=== PATIENT | male | born 1960 | race Caucasian/White ===

== ENCOUNTER 2016-12-02 08:20 | Day surgery (SDC) | payer BC ==
[2016-12-01 13:30] VITALS: BMI 31.2
--- NOTE | 2016-12-02 11:57 | HP ---
History & Physical Update - History History: No Change - Physical Physical: No Change - Assessment Assessment: No Change - Plan Plan: No Change
[2016-12-02] MEDS ORDERED: MIDAZOLAM HCL 2 MG/2 ML SINGLE DOSE VIAL ONE (13:03)
[2016-12-02] MEDS ORDERED: ATROPINE SO4 0.4 MG/1 ML VIAL ONE (13:23)
[2016-12-02] MEDS ORDERED: ceFAZolin SODIUM 1 GM VIAL ONE (13:23)
[2016-12-02] MEDS ORDERED: ROCURONIUM BROMIDE 50 MG/5 ML VIAL ONE ×2 (13:23)
[2016-12-02] MEDS ORDERED: ceFAZolin SODIUM 1 GM VIAL IVPB ONE (13:40)
[2016-12-02] MEDS ORDERED: BUPIVACAINE HCL/PF 0.5% (5MG/ML) 10 ML VIAL ONE (13:45)
[2016-12-02] MEDS ORDERED: BUPIVACAINE HCL/PF 0.5% (5MG/ML) 10 ML VIAL IJ ONE (13:48)
[2016-12-02] MEDS ORDERED: NEOSTIGMINE METHYLSULFATE 0.5 MG/ML - 10 ML MDV ONE (15:03)
[2016-12-02] MEDS ORDERED: GLYCOPYRROLATE 0.2 MG/1 ML VIAL ONE (15:03)
--- NOTE | 2016-12-02 15:23 | SURG ---
Surgery Wad Impregnator Note Wad Impregnator: Oracio Foreman PA-C Date of Service: 12/02/16 Diagnosis: Incarcerated umbilical hernia Procedure: Robotic repair incarcerated umbilical hernia with mesh I was present for the entirety of the operative procedure. For further detail, please refer to operative report. Visit type - Case Type Case Type: Scheduled Admission - New patient This patient is new to me today: Yes Date on this admission: 12/02/16
[2016-12-02] MEDS ORDERED: PROMETHAZINE HCL 25 MG/1 ML VIAL IVPUSH PRN (15:31)
[2016-12-02] MEDS ORDERED: ONDANSETRON 4 MG/2 ML VIAL IVPUSH PRN (15:31)
[2016-12-02] MEDS ORDERED: LABETALOL HCL 5 MG/1 ML (100MG/20 ML VIAL) IVPUSH ONE (15:34)
[2016-12-02] MEDS ORDERED: LACTATED RINGERS SOLUTION 1,000 ML IV SCH (15:45)
--- NOTE | 2016-12-02 15:58 | OP ---
Operative Note - Note: Operative Date: 12/02/16 Pre-Operative Diagnosis: UMBILICAL HERNIA Operation: ROBOTIC UMBILICAL HERNIA REPAIR WITH MESH Findings: 4 CM UMBILICAL HERNIA CONTAINING OMENTUM Post-Operative Diagnosis: Same as Pre-op Surgeon: Woody Weldon Steam Pressure Chamber Operator: Oracio Foreman Anesthesia: General Operative Report Dictated: Yes
[2016-12-02] MEDS ORDERED: hydrALAZINE HCL 20 MG/ML VIAL ONE (15:59)
[2016-12-02] MEDS ORDERED: HYDROmorphone HCL CARPU-JECT 2 MG/1 ML DISP.SYRIN ONE (16:12)
[2016-12-02] MEDS ORDERED: hydrALAZINE HCL 20 MG/ML VIAL IVPUSH ONE (16:34)
[2016-12-02 17:33] VITALS: TEMP 98.9
[2016-12-02 19:50] VITALS: BP 151/86; PULSE 63
--- NOTE | 2016-12-03 13:40 | OP ---
DATE OF OPERATION: 12/02/2016 PROCEDURE: Robotic-assisted laparoscopic umbilical hernia repair with mesh. PREOPERATIVE DIAGNOSIS: Umbilical hernia. POSTOPERATIVE DIAGNOSIS: Umbilical hernia. SURGEON: Woody Weldon MD DEALER SALES MANAGER: DESTINY Morel ANESTHESIA: General endotracheal. FINDINGS AND PROCEDURE: This is a 56-year-old male with the of slowly growing bulge over the umbilicus which was partially reducible, with a defect of about 3 cm in its widest diameter. The patient was advised repair of the hernia, and consent was obtained after discussing the risks, benefits, and alternatives of the procedure. Patient was brought to the operating room and placed in supine position. General endotracheal anesthesia was administered. The abdomen was prepped and draped in the usual sterile fashion. A roll was placed under the patient's left flank. Using 0.5% Marcaine, local anesthesia was administered to the proposed incision site. The peritoneal cavity was entered using the Veress needle technique via an 8-mm incision at the left subcostal region posterior to the anterior axillary line. Pneumoperitoneum was established. This was followed by insertion of an 8-mm port. The 3-D 30-degree laparoscope was inserted, and the peritoneal cavity was carefully inspected. No inadvertent injury was noted. The hernia contained a small piece of omentum which was readily reduced. Two 8-mm ports were inserted between the anterior axillary and the midclavicular lines about 8-9 mm away from each other, one at the level of the umbilicus and one at the left lower quadrant. The target organ was set and the robotic arms were docked. A fenestrated bipolar grasper was inserted in the left lower quadrant port, and the EndoWrist german connected to monopolar cautery were inserted at the left subcostal port. The undersigned then scrubbed out to commence the console part of the procedure. The peritoneum covering about 5 cm away from the umbilicus was scored and opened to enter the preperitoneal space. This was extended up and down about 12 cm. This dissection was carried down towards the umbilical hernia and then beyond the midline to the right to about also 5 cm from the umbilical hernia. The hernia sac was carefully dissected using the EndoWrist german and was completely reduced. The full size now of the umbilical hernia was about 4 cm in diameter. After dissection was deemed satisfactory, the umbilical defect was closed with continuous V-Loc No. 1 nonabsorbable sutures. This was followed by deployment of a 9 x 12-cm ProGrip mesh to reinforce the repair. After deployment was deemed satisfactory, the peritoneal pocket was then closed with continuous V-Loc 2-0 absorbable sutures. The peritoneal cavity was once again carefully inspected and was found to be free of active bleeding or any abnormal fluid collection or fluid drainage. The pneumoperitoneum was evacuated and the instruments were removed. The robotic arms were undocked and the ports were removed. The wounds were closed with subcuticular Biosyn 4-0 sutures reinforced with Dermabond. The patient was successfully extubated and transferred to the postanesthesia care unit in satisfactory condition. Estimated blood loss was about 5 mL. WOUND CLASS: Clean. The patient received 2 g of Ancef prior to the start of the procedure. Agapito [id number]
== END 2016-12-02 19:00 | disposition home or self-care (01) ==
LOC: JASU-SURG 08:20
PROVIDERS: ATTEND Surgery
PROC: 8E0W4CZ Robotic Assisted Procedure of Trunk Region, Percutaneous Endoscopic Approach (ICD-10-PCS; 2016-12-02)
PROC: 0WUF4JZ Supplement Abdominal Wall with Synthetic Substitute, Percutaneous Endoscopic Approach (ICD-10-PCS; principal; 2016-12-02 11:00)
DX: K42.9 Umbilical hernia without obstruction or gangrene (principal)
CPT/HCPCS: 49652; S2900; 94760

== ENCOUNTER 2017-12-07 07:38 | Day surgery (SDC) | payer BC, OTHER ==
[2017-10-23 10:08] VITALS: BMI 31.0
[2017-12-07] MEDS ORDERED: LIDOCAINE HCL 1%, 10 MG/ML (20ML VIAL) ONE (09:59)
[2017-12-07] MEDS ORDERED: BUPIVACAINE HCL/PF 0.5% (5MG/ML) 10 ML VIAL ONE (09:59)
[2017-12-07] MEDS ORDERED: PROPOFOL 20 ML ONE ×2 (10:04→10:50)
[2017-12-07] MEDS ORDERED: MIDAZOLAM HCL 2 MG/2 ML SINGLE DOSE VIAL ONE (10:04)
[2017-12-07] MEDS ORDERED: PROMETHAZINE HCL 25 MG/1 ML VIAL IVPUSH PRN ×2 (10:23→11:54)
[2017-12-07] MEDS ORDERED: ONDANSETRON 4 MG/2 ML VIAL IVPUSH PRN ×2 (10:23→11:54)
[2017-12-07] MEDS ORDERED: ceFAZolin SODIUM 1 GM VIAL ONE (10:30)
[2017-12-07] MEDS ORDERED: LACTATED RINGERS SOLUTION 1,000 ML IV SCH ×2 (10:30→12:00)
[2017-12-07] MEDS ORDERED: SODIUM CHLORIDE 0.9% P/F 10 ML VIAL IJ ONE (10:30)
[2017-12-07] MEDS ORDERED: ceFAZolin SODIUM 1 GM VIAL IVPB ONE (10:33)
[2017-12-07] MEDS ORDERED: LIDOCAINE HCL/PF 2% SDV 5ML VIAL ONE (10:33)
[2017-12-07] MEDS ORDERED: LIDOCAINE HCL 1%, 10 MG/ML (20ML VIAL) NR ONE ×2 (10:45)
[2017-12-07] MEDS ORDERED: BUPIVACAINE HCL/PF (5 MG/ML) 30 ML VIAL IJ ONE ×3 (10:45)
[2017-12-07] MEDS ORDERED: KETOROLAC TROMETHAMINE 30 MG/1 ML VIAL ONE (10:54)
--- NOTE | 2017-12-07 11:44 | SURG ---
Surgery Dynamic Balancer Note Dynamic Balancer: Kalin Fields PA-C Date of Service: 12/07/17 Diagnosis: Sebaceous cyst and Lipoma Procedure: Excision of upper back sebaceous cyst and Right chest wall lipoma I was present for the entirety of the operative procedure. For further detail, please refer to operative report.
--- NOTE | 2017-12-07 11:44 | OP ---
Operative Note - Note: Operative Date: 12/07/17 Pre-Operative Diagnosis: Sebaceous cyst and lipoma Operation: Excision of upper back sebaceous cyst and Right chest well lipoma Surgeon: Westley Mandujano Senior Staff Consultant: Kalin Fields Anesthesia: MAC Estimated Blood Loss (mls): 5 Fluid Volume Replaced (mls): 600 Operative Report Dictated: Yes
[2017-12-07 12:41] VITALS: TEMP 97.8
[2017-12-07 13:47] VITALS: BP 130/85; PULSE 50
--- NOTE | 2017-12-09 09:55 | PATH ---
Surgical Pathology Report Patient Name: RAJINDER CURRIE [facility]. Rec. #: [id number] /Age/Gender: 1960 (Age: 57) / M Account: [id number] Location: [facility] SURGICAL Taken: 12/07/2017 Received: 12/07/2017 Reported: 12/09/2017 Physicians: Westley Mandujano MD Specimen(s) Received A: LIPOMA, RIGHT LATERAL CHEST WALL B: SEBACEOUS CYST, RIGHT UPPER BACK Clinical History Sebaceous cyst, right upper back Lipoma right lateral chest wall Final Diagnosis A. CHEST WALL, LATERAL, RIGHT, EXCISION: MATURE FIBROADIPOSE TISSUE CONSISTENT WITH LIPOMA. B. UPPER BACK, RIGHT, EXCISION: EPIDERMAL INCLUSION CYST. Electronically Signed Kanwal Ovalles M.D. Gross Description A. Received in formalin labeled as "lipoma, right lateral chest wall" is a yellow lobulated adipose tissue measuring 4 x 3 x 2 cm. Cut section is yellow and homogenous. No necrosis or hemorrhage are identified. Video Engineer sections are submitted in one cassette B. Received in formalin labeled as "sebaceous cyst, right upper back" is an ellipse of brown-rutherford skin measuring 2 x 0.5 cm with an underlying cystic lesion measuring 2.5 x 2 cm. Surgical margin is inked in blue. Cut section of the cyst contains rutherford homogenous material. The specimen is entirely submitted in 4 cassettes. FROYLAN/12/07/2017 mehnaz/12/07/2017
--- NOTE | 2017-12-09 10:01 | OP ---
DATE OF OPERATION: 12/07/2017 PREOPERATIVE DIAGNOSIS: Soft tissue mass of the right lateral chest wall ( lipoma) and sebaceous cyst of the upper back. PROCEDURE: Excision of soft tissue masses. SURGEON: Westley Mandujano MD OFFAL ICER POULTRY: Kalin Fields PA-C ANESTHESIA: Local with IV sedation. OPERATIVE FINDINGS: There was an approximately 5-cm subfascial right lateral chest wall mass clinically consistent with a lipoma as well as an approximately 3-cm sebaceous cyst of the upper back. The rest of the findings were unremarkable. DESCRIPTION OF PROCEDURE: The patient was placed on the operating table in the left lateral decubitus position, and the areas over the masses that had been previously marked were prepped with ChloraPrep and draped in sterile fashion. A time-out was taken. An incision was mapped out over the right lateral chest wall mass, and the area was infiltrated with 1% Xylocaine and 0.5% Marcaine in equal concentration. An incision was made with a scalpel and taken down through skin and subcutaneous tissues to the deep fascia where the mass was encountered. Using blunt dissection and electrocautery, the mass was dissected off the chest wall fascia and down to its insertion in the intercostal muscle. The pedicle was clamped. The mass excised and sent for pathological examination, and the pedicle ligated with 3-0 Vicryl suture. Hemostasis was checked for and noted to good, and then the wound was copiously irrigated with sterile saline and closed in layers with interrupted 2-0 Vicryl for the deep fascia, interrupted 3-0 Vicryl for the deep dermis, and 4-0 Monocryl in a subcuticular continuous fashion. Attention was then turned to the mass on the upper back, where an incision was mapped out to include the punctum and a paddle of skin overlying the mass. Again, the area was infiltrated with 1% Xylocaine and 0.5% Marcaine in equal concentration. An incision was made with a scalpel and taken down through skin and subcutaneous tissue. The mass was then dissected free from the underlying subcutaneous space and passed off the operative field intact and sent for pathological examination. Hemostasis was secured with electrocautery, and the wound closed in layers with interrupted 3-0 Vicryl for the deep dermis and 4-0 Monocryl in a subcuticular continuous fashion to reapproximate the skin edges. Steri-Strips, dry sterile dressings, and Tegaderm dressing were placed. Then, the procedure terminated at this point, and the patient was transferred to the post-anesthesia care unit in stable condition, awake and alert. ESTIMATED BLOOD LOSS: 5 mL. REPLACEMENTS: Crystalloid. DRAINS: None. SPECIMENS: Lipoma and sebaceous cyst to Pathology. I, Westley Mandujano MD, was physically present in the operating room from the time the patient was placed on the operating table until he was transferred to the post-anesthesia care unit in my accompaniment. MD LUCERO Mandujano/[id number] MTDD
== END 2017-12-07 13:50 | disposition home or self-care (01) ==
LOC: JASU-SURG 07:38
PROVIDERS: ATTEND Surgery
PROC: 0JB70ZZ Excision of Back Subcutaneous Tissue and Fascia, Open Approach (ICD-10-PCS; 2017-12-07)
PROC: 0JB80ZZ Excision of Abdomen Subcutaneous Tissue and Fascia, Open Approach (ICD-10-PCS; principal; 2017-12-07 10:00)
DX: D48.1 Neoplasm of uncertain behavior of connective and other soft tissue (principal); L72.3 Sebaceous cyst
CPT/HCPCS: 88304-TC; 94760

== ENCOUNTER 2018-08-30 15:34 | Emergency (ER) | payer BC, OTHER ==
--- NOTE | 2018-08-30 15:38 | PDOC ---
Rapid Medical Evaluation Time Seen by Provider: 08/30/18 15:35 Medical Evaluation: Allergies Allergy/AdvReac Type Severity Reaction Status Date / Time No Known Allergies Allergy Verified 12/07/17 08:24 08/30/18 15:37 I have performed a brief in-person evaluation of this patient. The patient presents with a chief complaint of: vomiting Pertinent physical exam findings: VSS, AF. Right flank pain. -CVAT, ABD SNTND. I have ordered the following: urine, labs The patient will proceed to the ED for further evaluation. Discharge Disposition - Diagnosis Vomiting - Referrals - Patient Instructions - Post Discharge Activity
[2018-08-30] MEDS ORDERED: ONDANSETRON 4 MG/2 ML VIAL IVPUSH ONE (15:39)
[2018-08-30 15:40] VITALS: BP 137/89; PULSE 84; TEMP 98.6; BMI 32.5
[2018-08-30] MEDS ORDERED: ONDANSETRON 4 MG/2 ML VIAL ONE (16:34)
[2018-08-30 16:40] LABS: BASO % 0.8 % (0-2.0); EOS % 0.5 % (0-4.5); HEMATOCRIT 42.5 % (35.4-49); HEMOGLOBIN 14.9 GM/dL (11.7-16.9); LYMPH % 25.7 % (8-40); MCH 30.7 pg (25.7-33.7); MCHC 35.1 g/dl (32.0-35.9); MEAN CELL VOLUME 87.5 fl (80-96); MEAN PLT VOLUME 8.6 fl (7.5-11.1); MONO % 6.1 % (3.8-10.2); NEUT % 66.9 % (42.8-82.8); PLATELET COUNT 216 K/MM3 (134-434); RBC 4.86 M/mm3 (4.00-5.60); RDW 13.8 % (11.9-15.9); WHITE BLOOD COUNT 6.6 K/mm3 (4.0-10.0)
[2018-08-30 16:47] LABS: URINE APPEARANCE CLEAR; URINE BILIRUBIN NEGATIVE (<2.0 mg/dL); URINE COLOR DKYELLOW; URINE GLUCOSE (UA) NEGATIVE (NEGATIVE); URINE KETONE NEGATIVE (NEGATIVE); URINE LEUK ESTERASE NEGATIVE (NEGATIVE); URINE NITRITE NEGATIVE (NEGATIVE); URINE PROTEIN 1+ (NEGATIVE); URINE UROBILINOGEN NEGATIVE mg/dL (0.2-1.0)
[2018-08-30 16:48] LABS: EPI CELLS RARE /HPF (FEW); URINE MUCUS MANY
--- NOTE | 2018-08-30 16:59 | PDOC ---
History of Present Illness - General Chief Complaint: Nausea/Vomiting Stated Complaint: HEADACHE/VOMITING Time Seen by Provider: 08/30/18 15:35 History Source: Patient Exam Limitations: No Limitations - History of Present Illness Initial Comments: 08/30/18 16:51 58 yr old man with nephrolithiasis, HTN presents with vomiting 6x last night after eating moldovan food, initial emesis consisted of moldovan food and then 4x times this morning of nonbloody nonbloody emesis, about 1 cup each time consisting of the zach tammie he was drinking, a/w headache and weakness. no one else ate the moldovan food. denies fevers, chest pain, abdominal pain, sob, chills, nausea, hematochezia, hemoptysis, dysuria, hematuria. had colonoscopy 2-3yrs [address]. Snyder. was having constipation few weeks ago, was taking miralox for relief, has appointment with Dr. snyder on thursday for f/u. Surghx: hernia repear, sebaceous cyst Pmhx: htn, nephrolithiasis sochx: works at [employer], current everyday smoker since age 30, 2-3cigs/day, rare etoh use, never illicit drug use famhx: brother with HTN, CAD, was on dialysis at age 58, mother from brain cancer as older adult 08/30/18 17:00 Past History - Past Medical History Allergies/Adverse Reactions: Allergies Allergy/AdvReac Type Severity Reaction Status Date / Time No Known Allergies Allergy Verified 08/30/18 15:35 Home Medications: Ambulatory Orders Amlodipine Besylate 10 mg PO DAILY 12/07/17 Finasteride 5 mg PO HS 12/07/17 COPD: No Disorders: Yes (bph) HTN: Yes - Surgical History Abdominal Surgery: Yes (HERNIA) - Suicide/Smoking/Psychosocial Hx Smoking History: Current every day smoker Have you smoked in the past 12 months: Yes Number of Cigarettes Smoked Daily: 3 Information on smoking cessation initiated: Yes 'Breaking Loose' booklet given: 12/01/16 Hx Alcohol Use: No Drug/Substance Use Hx: No Substance Use Type: None Hx Substance Use Treatment: No Review of Systems - Review of Systems Constitutional: Yes: Weakness (since this morning). No: Diaphoresis, Fever HEENTM: No: Throat Swelling, Difficulty Swallowing Respiratory: No: Shortness of Breath, Productive cough, Hemoptysis Cardiac (ROS): No: Chest Pain, Edema, Irregular Heart Rate, Lightheadedness, Palpitations, Syncope, Chest Tightness ABD/GI: Yes: Constipated, Vomiting. No: Diarrhea, Difficulty Swallowing, Nausea , Abdominal cramping : No: Burning, Dysuria, Hematuria Musculoskeletal: No: Back Pain, Muscle Pain, Muscle Weakness, Neck Pain Integumentary: No: Bruising, Erythema, Pruritus, Rash Neurological: Yes: Headache. No: Numbness, Tingling, Tremors, Unsteady Gait, Dizziness *Physical Exam - Vital Signs Last Vital Signs Temp Pulse Resp BP Pulse Ox 98.6 F 84 20 137/89 98 08/30/18 15:36 08/30/18 15:36 08/30/18 15:36 08/30/18 15:36 08/30/18 15:36 - Physical Exam General Appearance: Yes: Appropriately Dressed HEENT: positive: EOMI, CARTER, Normal Voice, Pharynx Normal. negative: Tonsillar Erythema, Thrush Neck: positive: Trachea midline, Normal Thyroid, Supple Respiratory/Chest: positive: Lungs Clear, Normal Breath Sounds. negative: Crackles, Rales, Wheezing Cardiovascular: positive: Regular Rhythm, Regular Rate. negative: Murmur Gastrointestinal/Abdominal: positive: Normal Bowel Sounds, Flat, Soft. negative : Protuberent, Distended, Guarding Musculoskeletal: positive: Normal Inspection. negative: CVA Tenderness, Vertebral Tenderness Extremity: negative: Calf Tenderness, Erythema Integumentary: positive: Dry, Warm. negative: Rash Neurologic: positive: Fully Oriented, Alert Moderate Sedation - Procedure Monitoring Vital Signs: Procedure Monitoring Vital Signs Temperature 98.6 F 08/30/18 15:36 Pulse Rate 84 08/30/18 15:36 Respiratory Rate 20 08/30/18 15:36 Blood Pressure 137/89 08/30/18 15:36 O2 Sat by Pulse Oximetry (%) 98 08/30/18 15:36 ED Treatment Course - LABORATORY CBC & Chemistry Diagram: 08/30/18 16:30 08/30/18 16:30 - ADDITIONAL ORDERS Additional order review: Laboratory Results 08/30/18 08/30/18 16:30 16:30 WBC 6.6 RBC 4.86 Hgb 14.9 Hct 42.5 MCV 87.5 MCH 30.7 MCHC 35.1 RDW 13.8 Plt Count 216 MPV 8.6 Absolute Neuts (auto) 4.4 Neutrophils % 66.9 Lymphocytes % 25.7 D Monocytes % 6.1 Eosinophils % 0.5 Basophils % 0.8 Nucleated RBC % 0 Urine Color Dkyellow Urine Appearance Clear Urine pH 5.0 Ur Specific [place] 1.028 Urine Protein 1+ H Urine Glucose (UA) Negative Urine Ketones Negative Urine Blood Negative Urine Nitrite Negative Urine Bilirubin Negative Urine Urobilinogen Negative Ur Leukocyte Esterase Negative 08/30/18 16:30 RBC 4.86 MCV 87.5 MCHC 35.1 RDW 13.8 MPV 8.6 Neutrophils % 66.9 Lymphocytes % 25.7 D Monocytes % 6.1 Eosinophils % 0.5 Basophils % 0.8 - Medications Given in the ED: ED Medications Discontinued Medications Generic Name Dose Route Start Last Admin Trade Name Freq PRN Reason Stop Dose Admin Ondansetron HCl 4 mg 08/30/18 15:39 08/30/18 16:33 Zofran Injection IVPUSH 08/30/18 15:40 4 mg ONCE ONE Administration Medical Decision Making - Medical Decision Making 08/30/18 17:02 58 yr old man with HTN and nephrolithaisis presents with vomiting and weakness. pt receiving IVF, s/p zofran will check labs and po challenge likely gastritis PE unrevealing for any acute abdominal pathology to indicate imaging. counseled smoking cessation 08/30/18 17:21 reviewed results with patient tolerated crackers and water well in the ED. pt feels better with no episodes of vomiting in the ED. recommend he eat potassium rich foods at home as potassium level was low on labs , likely due to his vomiting. pt in agreement to f.u with dr. snyder and dr. erazo, pt is stable for outpatient f/u. work note provided. *DC/Admit/Observation/Transfer Diagnosis at time of Disposition: Vomiting - Discharge Dispostion Disposition: HOME Condition at time of disposition: Improved Decision to Admit order: No - Referrals Referrals: Siddhartha Herman MD [Primary Care Provider] - - Patient Instructions Printed Discharge Instructions: DI for Vomiting -- Adult, How to Quit Smoking Additional Instructions: resums eating and drinking as you can tolerate. Please keep your appointment with Dr.Lantin next week and follow-up with Dr. Erazo for post-hospital evaluation. If you develop any new symptoms, worsening abdominal pain, chest pain, fevers, bloody vomiting or any symptoms please return to the hospital. Please stop smoking. - Post Discharge Activity Forms/Work/School Notes: Back to Work
--- NOTE | 2018-08-30 17:02 | PDOC ---
Attending Attestation - Resident Resident Name: Brian Gooden - ED Attending Attestation I have performed the following: I have examined & evaluated the patient, The case was reviewed & discussed with the resident, I agree w/resident's findings & plan, Exceptions are as noted - HPI HPI: 08/30/18 16:55 58 yo male had Slovenian dinner last night and later developed nausea and vomiting -he had not taken anything for his headache but states it is resolving 08/30/18 17:18 - Physicial Exam PE: 08/30/18 17:18 wnwd 58 yo male with c/o nausea and vomiting head ncat neck supple,no jvd lungs cta b/l cvs [id number] abd no rebound,no guarding,no focal tenderness skin warm and dry no cva tenderness neuro axox3,ambulatory,motor strength 5/5 b/l psych appropriate - Medical Decision Making 08/30/18 17:21 pt feels much better after IVF and zofran imp gastritis,food borne illness plan d/c home
[2018-08-30 17:09] LABS: ALK PHOS 86 U/L (45-117); ANION GAP 7 MMOL/L (8-16); BILIRUBIN,TOTAL 0.8 mg/dL (0.2-1); BLOOD UREA NITROGEN 14 mg/dL (7-18); CHLORIDE 106 mmol/L (98-107); CO2 27 mmol/L (21-32); GLUCOSE,RANDOM 111 mg/dL (74-106); LIPASE 184 U/L (73-393); POTASSIUM 3.4 mmol/L (3.5-5.1); SGOT/AST 27 U/L (15-37); SGPT/ALT 46 U/L (13-61); SODIUM 141 mmol/L (136-145); TOT PROT 8.1 g/dl (6.4-8.2)
== END 2018-08-30 17:30 | disposition home or self-care (01) ==
LOC: JER 15:34
PROC: 3E033GC Introduction of Other Therapeutic Substance into Peripheral Vein, Percutaneous Approach (ICD-10-PCS; principal; 2018-08-30)
DX: K29.60 Other gastritis without bleeding (principal); I10 Essential (primary) hypertension; Z87.442 Personal history of urinary calculi
CPT/HCPCS: 36415; 80053; 81003; 81015; 83690; 85025; 87086; 99283-25

== ENCOUNTER 2018-11-26 23:35 | Emergency (ER) | payer BC, OTHER | END 2018-11-27 04:47 | disposition home or self-care (01) | LOC: JER 23:35 ==

== ENCOUNTER 2019-06-29 06:52 | Emergency (ER) | payer BC, OTHER ==
[2019-06-29 07:23] VITALS: TEMP 98.5; BMI 31.0
--- NOTE | 2019-06-29 07:39 | PDOC ---
History of Present Illness - General Chief Complaint: Chronic pain Stated Complaint: PAIN RIGHT HIP Time Seen by Provider: 06/29/19 07:38 - History of Present Illness Initial Comments: 06/29/19 07:51 58 yr old man with nephrolithiasis, HTN and chronic hip pain who presents with 2 days of R sided hip pain that is exacerbated with walking and radiates to the anterior thigh. The patient worked as a house keeper and had a pinching sensation in the hip starting approx 10 years ago and he went to physical therapy with improvement of the pain. The pain reoccurred 2 years ago and he went to physical therapy again with resolutions. 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 He denies any numbness, tingling, changes in urination, trauma or any other symptoms. He has no other complaints ROS GENERAL/CONSTITUTIONAL: No fever or chills. No weakness. HEAD, EYES, EARS, NOSE AND THROAT: No sore throat. CARDIOVASCULAR: No chest pain or shortness of breath RESPIRATORY: No cough, wheezing, or hemoptysis. GASTROINTESTINAL: No nausea, vomiting, diarrhea or constipation. GENITOURINARY: No dysuria, frequency, or change in urination. MUSCULOSKELETAL: + joint or muscle swelling or pain. No neck or back pain. SKIN: No rash NEUROLOGIC: No headache, vertigo, loss of consciousness, or change in strength/ sensation. ENDOCRINE: No increased thirst. No abnormal weight change HEMATOLOGIC/LYMPHATIC: No anemia, easy bleeding, or history of blood clots. ALLERGIC/IMMUNOLOGIC: No hives or skin allergy. PE GENERAL: Awake, alert, and fully oriented, in no acute distress HEAD: No signs of trauma, normocephalic, atraumatic EYES: EOMI, sclera anicteric, conjunctiva clear ENT: oropharynx clear without exudates. Moist mucosa NECK: Normal ROM, supple LUNGS: No distress, speaks full sentences, clear to auscultation bilaterally HEART: Regular rate and rhythm, normal S1 and S2, no murmurs, rubs or gallops, peripheral pulses normal and equal bilaterally. ABDOMEN: Soft, nontender. No guarding, no rebound. No masses EXTREMITIES : Normal inspection, Normal range of motion, no edema. No clubbing or cyanosis. Negative straight leg NEUROLOGICAL: Cranial nerves II through XII grossly intact. Normal speech, no focal sensorimotor deficits SKIN: Warm, Dry, normal turgor, no rashes or lesions noted MDM DDX including but not limited to: chronic pain consider piriformis syndrome ED Course: dose tylenol, reassess d/c with PCP f/u and for PT referral Tiffanie Grant PGY2 Emergency Medicine Past History - Past Medical History Allergies/Adverse Reactions: Allergies Allergy/AdvReac Type Severity Reaction Status Date / Time No Known Allergies Allergy Verified 06/29/19 08:59 Home Medications: Ambulatory Orders Amlodipine Besylate 10 mg PO DAILY 12/07/17 Finasteride 5 mg PO HS 12/07/17 COPD: No Disorders: Yes (bph) HTN: Yes Other medical history: inguinal hernia - Surgical History Abdominal Surgery: Yes (HERNIA) - Immunization History Immunization Up to Date: No - Psycho Social/Smoking Cessation Hx Smoking History: Current every day smoker Have you smoked in the past 12 months: Yes Number of Cigarettes Smoked Daily: 3 Information on smoking cessation initiated: No 'Breaking Loose' booklet given: 12/01/16 Hx Alcohol Use: No Drug/Substance Use Hx: No Substance Use Type: None Hx Substance Use Treatment: No *Physical Exam - Vital Signs Last Vital Signs Temp Pulse Resp BP Pulse Ox 98.5 F 62 16 143/89 98 06/29/19 07:21 06/29/19 07:21 06/29/19 07:21 06/29/19 07:21 06/29/19 07:21 Discharge - Discharge Information Problems reviewed: Yes Clinical Impression/Diagnosis: Hip pain, Chronic pain Condition: Stable Disposition: HOME - Admission No - Follow up/Referral Referrals: Siddhartha Herman MD [Primary Care Provider] - - Patient Discharge Instructions Patient Printed Discharge Instructions: DI for Chronic Pain -- Adult Additional Instructions: You were seen in the ED for complaints of hip pain. In the ED you were evaluated and treated with pain control There does not appear to be an acute need for immediate hospitalization. You are advised to follow up with your Primary Care Physician within 1 week. You should get a referral from your Family Doctor to go back to physical therapy Do not take Aleve every 4 hours, instead take it every 12 hours. Take Tylenol and Motrin for pain control Return to the ED immediately if you experience worsening pain, numbness, tingling or any other concerning symptoms - Post Discharge Activity Work/Back to School Note: Back to Work
[2019-06-29] MEDS ORDERED: KETOROLAC TROMETHAMINE 30 MG/1 ML VIAL IM ONE (08:12)
[2019-06-29] MEDS ORDERED: ACETAMINOPHEN 325 MG TABLET (FP) PO ONE (08:24)
[2019-06-29] MEDS ORDERED: KETOROLAC TROMETHAMINE 30 MG/1 ML VIAL ONE (08:41)
[2019-06-29] MEDS ORDERED: ACETAMINOPHEN 325 MG TABLET (FP) ONE (08:41)
[2019-06-29 09:39] VITALS: BP 141/89; PULSE 60
--- NOTE | 2019-06-29 11:08 | PDOC ---
Documentation entered by Ashley Valentin SCRIBE, acting as scribe for Meaghan Calderón MD. Meaghan Calderón MD: This documentation has been prepared by the jamaalibHomero osorio Lincy, SCRIBE, under my direction and personally reviewed by me in its entirety. I confirm that the documentation accurately reflects all work, treatment, procedures, and medical decision making performed by me. Attending Attestation - Resident Resident Name: Tiffanie Grant - [facility] HPI: 06/29/19 09:06 The patient is a 59-year-old male with a past medical history significant for HTN and chronic R. hip pain who presents to the emergency department with R. hip pain. The patient presents with 2 days of R. hip pain that radiates down the right thigh. The patient reports the pain is aggravated with ambulation, reports relief at rest. The patient reports the pain is similar to prior episodes of R. hip pain. Denies leg weakness. Allergies: NKA PCP: Dr. Herman - Physicial Exam PE: 06/29/19 09:07 GENERAL: Awake, alert, and fully oriented, in no acute distress LUNGS: Breath sounds equal, clear to auscultation bilaterally. No wheezes, and no crackles HEART: Regular rate and rhythm, normal S1 and S2, no murmurs, rubs or gallops NEUROLOGICAL: Cranial nerves II through XII grossly intact. Normal speech, normal gait - Medical Decision Making 07/01/19 16:37 pt presents to the Ed complaining of acute exacerbation of his chronic leg and hip pain. Ambulatory in the ED. No trauma or other indications for imaging. Pain is consistent with sciatica or other nerve compression. Will discharge home with instructions to follow up with his PMD.
== END 2019-06-29 09:39 | disposition home or self-care (01) ==
LOC: JER 06:52
PROC: 3E0233Z Introduction of Anti-inflammatory into Muscle, Percutaneous Approach (ICD-10-PCS; principal; 2019-06-29)
DX: M25.551 Pain in right hip (principal); G89.29 Other chronic pain; F17.210 Nicotine dependence, cigarettes, uncomplicated
CPT/HCPCS: 99281-25

== ENCOUNTER 2019-12-24 06:38 | Emergency (ER) | payer BC, OTHER ==
[2019-12-24 06:55] VITALS: TEMP 98.8; BMI 30.5
[2019-12-24] MEDS ORDERED: ACETAMINOPHEN 325 MG TABLET (FP) PO ONE (07:37)
[2019-12-24] MEDS ORDERED: LIDOCAINE 5% TOPICAL PATCH TP ONE (07:39)
[2019-12-24] MEDS ORDERED: LIDOCAINE 5% TOPICAL PATCH ONE (07:46)
[2019-12-24] MEDS ORDERED: ACETAMINOPHEN 325 MG TABLET (FP) ONE (07:46)
[2019-12-24 08:23] LABS: BASO % 0.9 % (0-2.0); EOS % 2.2 % (0-4.5); LYMPH % 31.5 % (8-40); MCHC 34.1 g/dl (32.0-35.9); MEAN CELL VOLUME 88.1 fl (80-96); MEAN PLT VOLUME 8.9 fl (7.5-11.1); MONO % 7.2 % (3.8-10.2); NEUT % 58.2 % (42.8-82.8); PLATELET COUNT 221 K/MM3 (134-434); RBC 4.99 M/mm3 (4.00-5.60); RDW 13.8 % (11.9-15.9); WHITE BLOOD COUNT 5.1 K/mm3 (4.0-10.0)
[2019-12-24 08:44] LABS: ALBUMIN 3.8 g/dl (3.4-5.0); BILIRUBIN,TOTAL 0.8 mg/dL (0.2-1); CREATININE 0.9 mg/dL (0.55-1.3); POTASSIUM 3.7 mmol/L (3.5-5.1); TOT PROT 6.5 g/dl (6.4-8.2)
[2019-12-24 08:53] LABS: PH,URINE 5.5 (5.0-8.0); URINE APPEARANCE Clear; URINE BILIRUBIN Negative (NEGATIVE); URINE COLOR Yellow; URINE GLUCOSE (UA) Negative (NEGATIVE); URINE KETONE Negative (NEGATIVE); URINE LEUK ESTERASE Negative (NEGATIVE); URINE NITRITE Negative (NEGATIVE); URINE PROTEIN Trace (NEGATIVE); URINE UROBILINOGEN 0.2 mg/dL (0.2-1.0)
[2019-12-24 09:26] VITALS: BP 130/93; PULSE 52
[2019-12-24] MEDS ORDERED: LIDOCAINE PATCH REMOVAL MC SCH (22:00)
== END 2019-12-24 10:17 | disposition home or self-care (01) ==
LOC: JER 06:38
DX: S39.012A Strain of muscle, fascia and tendon of lower back, initial encounter (principal); Y99.9 Unspecified external cause status
CPT/HCPCS: 36415; 73523-TC-FY; 80053; 81003; 85025; 99284-25

== ENCOUNTER 2021-02-04 22:26 | Emergency (ER) | payer BC ==
[2021-02-04 22:32] VITALS: BP 150/93; PULSE 67; TEMP 97.8; BMI 31.0
[2021-02-04] MEDS ORDERED: LIDOCAINE 5% TOPICAL PATCH TP ONE (23:06)
[2021-02-04] MEDS ORDERED: KETOROLAC TROMETHAMINE 30 MG/1 ML VIAL IM ONE (23:06)
[2021-02-04] MEDS ORDERED: LIDOCAINE 5% TOPICAL PATCH ONE (23:09)
[2021-02-04] MEDS ORDERED: KETOROLAC TROMETHAMINE 30 MG/1 ML VIAL ONE (23:09)
[2021-02-05] MEDS ORDERED: LIDOCAINE PATCH REMOVAL MC ONE (12:00)
== END 2021-02-05 | disposition home or self-care (01) ==
LOC: JERFT 22:26 → JER 22:26 → JERFT 02-05
PROC: 3E0233Z Introduction of Anti-inflammatory into Muscle, Percutaneous Approach (ICD-10-PCS; principal; 2021-02-04)
DX: M54.31 Sciatica, right side (principal); M25.551 Pain in right hip
CPT/HCPCS: 99284-25

== ENCOUNTER 2021-10-08 21:51 | Emergency (ER) | payer BC ==
[2021-10-08 22:01] VITALS: BP 124/86; PULSE 68; TEMP 98.2; BMI 31.7
[2021-10-08] MEDS ORDERED: KETOROLAC TROMETHAMINE 30 MG/1 ML VIAL IM ONE (22:21)
[2021-10-08] MEDS ORDERED: KETOROLAC TROMETHAMINE 30 MG/1 ML VIAL ONE (22:23)
== END 2021-10-08 22:45 | disposition home or self-care (01) ==
LOC: JER 21:51
PROC: 3E023GC Introduction of Other Therapeutic Substance into Muscle, Percutaneous Approach (ICD-10-PCS; principal; 2021-10-08)
DX: M54.41 Lumbago with sciatica, right side (principal)
CPT/HCPCS: 99284-25

== ENCOUNTER 2022-04-08 15:26 | Emergency (ER) | payer BC, OTHER ==
[2022-04-08 15:31] VITALS: TEMP 98.1; BMI 32.5
[2022-04-08] MEDS ORDERED: METOCLOPRAMIDE HCL 10 MG TABLET (FP) PO ONE ×2 (16:41→16:48)
[2022-04-08] MEDS ORDERED: ACETAMINOPHEN 325 MG TABLET (FP) PO ONE (16:41)
[2022-04-08] MEDS ORDERED: ACETAMINOPHEN 325 MG TABLET (FP) ONE (16:48)
[2022-04-08 17:00] VITALS: RESP 16
[2022-04-08 17:55] LABS: BASO % 0.8 % (0-2.0); HEMATOCRIT 44.3 % (35.4-49); HEMOGLOBIN 15.1 GM/dL (11.7-16.9); LYMPH % 23.4 % (8-40); MCH 29.8 pg (25.7-33.7); MCHC 33.9 g/dl (32.0-35.9); MEAN CELL VOLUME 87.9 fl (80-96); MEAN PLT VOLUME 8.8 fl (7.5-11.1); NEUT % 66.8 % (42.8-82.8); PLATELET COUNT 194 10^3/uL (134-434); RBC 5.05 M/mm3 (4.00-5.60); WHITE BLOOD COUNT 5.4 K/mm3 (4.0-10.0)
[2022-04-08] MEDS ORDERED: IBUPROFEN 400 MG TABLET (FP) PO ONE ×2 (18:07→18:20)
[2022-04-08 18:11] VITALS: BP 135/99; PULSE 64
[2022-04-08 18:25] LABS: ALBUMIN 3.8 g/dl (3.4-5.0); BLOOD UREA NITROGEN 11.4 mg/dL (7-18)
[2022-04-08 18:29] LABS: CREATININE 0.8 mg/dL (0.55-1.3)
[2022-04-08 18:30] LABS: BILIRUBIN,TOTAL 0.6 mg/dL (0.2-1); TOT PROT 6.5 g/dl (6.4-8.2)
== END 2022-04-08 19:31 | disposition home or self-care (01) ==
LOC: JER 15:26
DX: R51.9 Headache, unspecified (principal); I10 Essential (primary) hypertension
CPT/HCPCS: 36415; 80053; 85025; 93005; 93010; 99284-25

== ENCOUNTER 2022-07-11 15:06 | Emergency (ER) | payer BC, OTHER ==
[2022-07-11 15:13] VITALS: BP 159/94; PULSE 69; RESP 20; TEMP 98; BMI 31.7
[2022-07-11] MEDS ORDERED: KETOROLAC TROMETHAMINE 30 MG/1 ML VIAL IM ONE (15:39)
[2022-07-11] MEDS ORDERED: KETOROLAC TROMETHAMINE 30 MG/1 ML VIAL ONE (15:48)
== END 2022-07-11 16:06 | disposition home or self-care (01) ==
LOC: JERFT 15:06 → JER 15:06 → JERFT 16:06
PROC: 3E023GC Introduction of Other Therapeutic Substance into Muscle, Percutaneous Approach (ICD-10-PCS; principal; 2022-07-11)
DX: G57.01 Lesion of sciatic nerve, right lower limb (principal)
CPT/HCPCS: 99284-25

== ENCOUNTER 2023-01-19 09:49 | Emergency (ER) | payer BC, OTHER ==
[2023-01-19 11:04] LABS: EOS % 1.2 % (0-4.5); HEMATOCRIT 42.9 % (35.4-49); HEMOGLOBIN 14.2 GM/dL (11.7-16.9); LYMPH % 25.1 % (8-40); MCHC 33.2 g/dl (32.0-35.9); MEAN CELL VOLUME 87.5 fl (80-96); MEAN PLT VOLUME 9.1 fl (7.5-11.1); MONO % 5.9 % (3.8-10.2); NEUT % 66.8 % (42.8-82.8); PLATELET COUNT 217 10^3/uL (134-434); RBC 4.91 M/mm3 (4.00-5.60); RDW 13.5 % (11.9-15.9); WHITE BLOOD COUNT 4.6 K/mm3 (4.0-10.0)
[2023-01-19 11:08] LABS: INR 1.01 (0.83-1.09); PROTHROMBIN TIME (PATIENT) 11.7 SEC (9.7-13.0)
[2023-01-19 11:10] LABS: ACTIVATED PTT 28.8 SECONDS (25.2-36.5)
[2023-01-19 11:20] LABS: POTASSIUM 3.6 mmol/L (3.5-5.1)
[2023-01-19 11:23] LABS: CALCIUM 9.2 mg/dL (8.5-10.1)
[2023-01-19 11:24] LABS: ALBUMIN 3.8 g/dl (3.4-5.0); BLOOD UREA NITROGEN 16.7 mg/dL (7-18)
[2023-01-19] MEDS ORDERED: ACETAMINOPHEN 1000 MG/100 ML BAG IVPB ONE (11:24)
[2023-01-19] MEDS ORDERED: LIDOCAINE 5% TOPICAL PATCH TP ONE (11:24)
[2023-01-19 11:29] LABS: BILIRUBIN,TOTAL 0.5 mg/dL (0.2-1); TOT PROT 6.5 g/dl (6.4-8.2)
[2023-01-19] MEDS ORDERED: LIDOCAINE 5% TOPICAL PATCH ONE (12:58)
[2023-01-19] MEDS ORDERED: ACETAMINOPHEN INJECTION 100 ML IVPB ONE (12:58)
[2023-01-19] MEDS ORDERED: MECLIZINE HCL 25 MG TABLET (FP) PO ONE (15:01)
[2023-01-19 15:48] VITALS: BP 153/112; PULSE 53; RESP 16; TEMP 98
== END 2023-01-19 15:56 | disposition home or self-care (01) ==
LOC: JER 09:49
PROC: 3E033NZ Introduction of Analgesics, Hypnotics, Sedatives into Peripheral Vein, Percutaneous Approach (ICD-10-PCS; principal; 2023-01-19)
DX: R42 Dizziness and giddiness (principal); R51.9 Headache, unspecified; M54.2 Cervicalgia; R00.1 Bradycardia, unspecified; I10 Essential (primary) hypertension
CPT/HCPCS: 36415; 70450-TC; 70496-TC; 70498-TC; 71046-TC-FY; 80053; 82550; 82553; 83735; 84484; 85025; 85610; 85730; 93005; 93010; 99285-25; Q9967

== ENCOUNTER 2023-11-17 04:27 | Day surgery (SDC) | payer BC, OTHER ==
[2023-11-12 14:29] VITALS: BMI 30.7
[2023-11-17 13:42] VITALS: TEMP 98.2
[2023-11-17 13:44] VITALS: RESP 15
[2023-11-17 13:46] VITALS: BP 115/74; PULSE 61
== END 2023-11-17 13:46 | disposition home or self-care (01) ==
LOC: JASU-ENDO 04:27
PROVIDERS: ATTEND Internal Medicine Gastroenterology
PROC: 0DBM8ZX Excision of Descending Colon, Via Natural or Artificial Opening Endoscopic, Diagnostic (ICD-10-PCS; principal; 2023-11-17 11:15)
DX: Z12.11 Encounter for screening for malignant neoplasm of colon (principal); K63.5 Polyp of colon; K64.8 Other hemorrhoids; Z86.010 Personal history of colon polyps
CPT/HCPCS: 88305-TC

== ENCOUNTER 2023-11-26 04:17 | Day surgery (SDC) | payer BC, OTHER ==
[2023-11-26 08:45] VITALS: BMI 29.5
[2023-11-26 10:00] VITALS: TEMP 97.5
[2023-11-26 10:38] VITALS: BP 114/72; PULSE 54; RESP 19
== END 2023-11-26 10:35 | disposition home or self-care (01) ==
LOC: JASU-ENDO 04:17
PROVIDERS: ATTEND Internal Medicine Gastroenterology
PROC: 0DB68ZX Excision of Stomach, Via Natural or Artificial Opening Endoscopic, Diagnostic (ICD-10-PCS; 2023-11-26)
PROC: 0DB48ZX Excision of Esophagogastric Junction, Via Natural or Artificial Opening Endoscopic, Diagnostic (ICD-10-PCS; principal; 2023-11-26 09:15)
DX: K21.00 Gastro-esophageal reflux disease with esophagitis, without bleeding (principal); K22.82 Esophagogastric junction polyp; K29.50 Unspecified chronic gastritis without bleeding; I10 Essential (primary) hypertension
CPT/HCPCS: 88305-TC; 88342-TC